=== PATIENT | female | born 1955 | race Hispanic/Latino ===

== ENCOUNTER 2021-05-31 10:31 | Outpatient (CLI) | payer MEDICARE | END 2021-05-31 10:32 | disposition home or self-care (01) | LOC: CSHMAMMO 10:31 | PROVIDERS: ATTEND Nurse Practitioner Family | DX: Z12.31 Encounter for screening mammogram for malignant neoplasm of breast (principal); Z13.820 Encounter for screening for osteoporosis; Z78.0 Asymptomatic menopausal state; N64.89 Other specified disorders of breast; M85.88 Other specified disorders of bone density and structure, other site | CPT/HCPCS: 77063; 77067; 77080 ==

== ENCOUNTER 2022-08-07 12:35 | Outpatient (CLI) | payer MEDICARE | END 2022-08-07 12:36 | disposition home or self-care (01) | LOC: CSHMAMMO 12:35 | PROVIDERS: ATTEND Nurse Practitioner Family | DX: Z12.31 Encounter for screening mammogram for malignant neoplasm of breast (principal) | CPT/HCPCS: 77063; 77067 ==